=== PATIENT | male | born 1995 | race Asian ===

== ENCOUNTER 2017-05-24 17:56 | Emergency (ER) | payer SELFPAY ==
[2017-05-24 18:05] VITALS: BP 145/86; PULSE 68; RESP 18; TEMP 97.9; O2SAT 98
--- NOTE | 2017-05-24 18:24 | EDPHY ---
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 ago has had some chest pressure since arrival. Patient states that he had a similar episode this when he flew back from [place] in September and believes that it is secondary to his chest leg. He presented to Urgent Care. Their they got the impression he is having chest pain. He also told him that his blood pressure was elevated so they told to come the emergency department for further evaluation. Is patient states he has had some constant pressure which is about a 3/10. It is not exertional. It is not pleuritic. There are no aggravating or alleviating factors. Patient states he feels very tired and check lytes at this time. No cough. No nausea or vomiting. Has no fevers or chills. No leg pain or swelling. ROS: 10 point Review of Systems is negative except as noted in the HPI. PMH: Denies Medications: None Allergies: None Social History: No smoking, no alcohol, no recreational drug use Family History: non-contributory Physical Exam: Gen: Awake, Alert, No Distress HEENT: Nose: no rhinorrhea Eyes: PERRLA, EOMI Mouth: Moist mucosa Neck: Supple, no JVD Chest: nontender, lungs clear to auscultation Heart: S1, S2 normal, no murmur Abd: Soft, non-tender, no guarding Back: no CVA tenderness, no midline tenderness Ext: no edema, non-tender Skin: no rash Neuro: CN II-XII intact, Sensation grossly intact, Strength 5/5 in bilateral upper and lower extremities - Personal History Current Tetanus/Diphtheria Vaccine: Yes - Medical/Surgical History Hx Asthma: No Hx Chronic Respiratory Disease: No Hx Diabetes: No Hx Cardiac Disease: No Hx Renal Disease: No Hx Cirrhosis: No Hx Alcoholism: No Hx HIV/AIDS: No Hx Splenectomy or Spleen Trauma: No Other PMH: denies - Social History Smoking Status: Never smoked Constitutional: Initial Vital Signs Temperature (C) 36.6 C 05/24/17 18:02 Heart Rate 68 05/24/17 18:02 Respiratory Rate 18 05/24/17 18:02 Blood Pressure 145/86 H 05/24/17 18:02 O2 Sat (%) 98 05/24/17 18:02 O2 Delivery Mode Room Air Allergies/Adverse Reactions: No Known Allergies Allergy (Unverified 05/24/17 18:02) Home Medications: Medication Instructions Recorded NK [No Known Home Meds] 05/24/17 Medical Decision Making ED Course/Re-evaluation: Healthy 22-year-old male with no risk factors for coronary artery disease coming in with some mild chest pressure. Patient just arrived for a possible flight from 2 days ago. He has not have any pleuritic pain. He is not tachycardic. He is not hypoxemic. No evidence of acute cardio or pulmonary process at this time. I have offered an ECG which I think would be reassuring but the patient states he does not wish to stay and does not want 1. I told him that I cannot rule out acute coronary syndrome acute process without an ECG. Patient states he understands with so just wants to go. He is discharged. He has medical decision capacity. He has otherwise been well. Will discharge with instructions follow up at [facility], return for worsening. Departure - Departure Disposition: Home, Routine, Self-Care Clinical Impression: Atypical chest pain Condition: Good Instructions: Chest Pain (ED) Additional Instructions: Return to the emergency department for increasing chest pain, shortness of breath, fevers, chills, cough, or any other concerns. Follow up at [facility] in 3-4 days if symptoms are not improving. Referrals: HOANG SALTER ,. [Clinic] - As per Instructions
== END 2017-05-24 18:45 | disposition home or self-care (01) ==
DX: R07.89 Other chest pain (principal)